=== PATIENT | female | born 1960 | race Caucasian/White ===

== ENCOUNTER → 2017-09-12 | Outpatient (CLI) | payer OTHER ==
[~2017-09-12] MED LIST: BACTRIM DS TAB1 EACH PO; HORMONE PATCH TOP; MULTIVITAMINS PO; NEXIUM40 MG PO; SIMETHICON CHEW80 M1 PO; ZOLOFT100 MG PO
== END ==
LOC: RAD 01:21
DX: Z12.31 Encounter for screening mammogram for malignant neoplasm of breast (principal)

== ENCOUNTER → 2019-07-02 | Outpatient (CLI) | payer OTHER | LOC: RAD 11:23 | DX: Z12.31 Encounter for screening mammogram for malignant neoplasm of breast (principal) ==

== ENCOUNTER → 2020-07-14 | Outpatient (CLI) | payer OTHER | LOC: BC 13:09 | DX: Z12.31 Encounter for screening mammogram for malignant neoplasm of breast (principal) ==